=== PATIENT | male | born 1990 | race Asian ===

== ENCOUNTER 2017-12-31 21:39 | Emergency (ER) | payer BC, OTHER ==
[2017-12-31 21:53] VITALS: BP 120/71
--- NOTE | 2017-12-31 22:01 | UC ---
Lower Extremity/Ankle HPI - HPI Summary HPI Summary: This is frankie Martinez documenting for attending Johanna Arboleda M.D. Patient is a 27 y/o male who [place] [facility] [place]/o right ankle pain s/p fall [employer]. He states he fell down and slammed his right ankle while playing basketball. He has a prior fracture in that ankle 14 years ago, and has had multiple sprains since then. Patient states he cant put weight on the ankle, but he does have his full ROM. He reports the ankle feels swollen, and squishy in certain areas. Declines analgesics. Just wrote the bar exam, planning travel to [place] this . - History of Current Complaint Stated Complaint: ANKLE INJURY Hx Obtained From: Patient Onset/Duration: Sudden Onset, Lasting Hours - [employer], Still Present Severity Currently: Moderate Pain Intensity: 4 Pain Scale Used: 0-10 Numeric Aggravating Factor(s): Standing, Ambulation Alleviating Factor(s): Rest Able to Bear Weight: No Related History: Other - 14 years ago right ankle fracture - Allergies/Home Medications Allergies/Adverse Reactions: Allergies Allergy/AdvReac Type Severity Reaction Status Date / Time No Known Allergies Allergy Verified 12/31/17 21:53 Home Medications: Home Medications NK [No Home Medications Reported] 12/31/17 [History Confirmed 12/31/17] PMH/Surg Hx/FS Hx/Imm Hx Endocrine History: Other Other Endocrine History: NEGATIVE: diabetes Respiratory History: Other Other Respiratory History: NEGATIVE: asthma - Family History Known Family History: Positive: Diabetes - Social History Occupation: Student - just finished law school Alcohol Use: Occasionally Substance Use Type: None Smoking Status (MU): Never Smoked Tobacco Review of Systems Constitutional: Negative - Fever Skin: Negative Eyes: Negative ENT: Negative Respiratory: Negative Cardiovascular: Negative Gastrointestinal: Negative Genitourinary: Negative Motor: Negative Neurovascular: Negative Musculoskeletal: Arthralgia - Right ankle pain and swelling Neurological: Negative Psychological: Negative All Other Systems Reviewed And Are Negative: Yes Physical Exam Triage Information Reviewed: Yes Appearance: Well-Appearing, Pain Distress - mild Vital Signs: Initial Vital Signs Temp 98.4 F 12/31/17 21:49 Pulse 76 12/31/17 21:49 Resp 18 12/31/17 21:49 BP 120/71 12/31/17 21:49 Pulse Ox 99 07/26/18 21:49 Respiratory: Positive: Lungs clear, Normal breath sounds Cardiovascular: Positive: RRR, No Murmur Musculoskeletal Exam: Other - mild swelling lateral malleolus, with tenderness anteriorly. Mild to moderate swelling. Musculoskeletal: Positive: ROM Limited @ - right ankle with decreased flexion, extension Neurological: Positive: Alert, Muscle Tone Normal Psychological Exam: Normal Skin Exam: Normal Diagnostics - Laboratory Diagnostic Studies Completed/Ordered: right ankle --no fracture seen, mild soft tissue swelling. Lower Extremity Course/Dx - Course Course Of Treatment: Ice, elevation, compression, crutches. - Differential Dx/Diagnosis Differential Diagnosis/HQI/PQRI: Fracture (Closed), Sprain Provider Diagnoses: right ankle sprain Discharge - Sign-Out/Discharge Documenting (check all that apply): Patient Departure - Discharge Plan Condition: Stable Disposition: HOME Patient Education Materials: Ankle Sprain (ED) Referrals: No Primary Care Phys,NOPCP [Primary Care Provider] - Swapnil Bates [Medical Doctor] - Additional Instructions: Ice your ankle for 20 minutes on, 20 minutes off until bed. Keep your leg elevated, use ibuprofen as needed for pain (600mg three times daily with food). You have a referral to sports medicine clinic. In general, they will accomodate a visit quite quickly, particularly if you explain the upcoming travel. - Billing Disposition and Condition Condition: STABLE Disposition: Home
--- NOTE | 2018-01-01 07:40 | RAD ---
HISTORY: right ankle pain COMPARISONS: None VIEWS: 3, Frontal, lateral, and oblique views of the right ankle FINDINGS: BONE DENSITY: Normal. BONES: There is no displaced fracture. JOINTS: There is no arthropathy. There is a small joint effusion. ALIGNMENT: There is no dislocation. SOFT TISSUES: Unremarkable. OTHER FINDINGS: None. IMPRESSION: NO ACUTE OSSEOUS INJURY. SMALL JOINT EFFUSION. IF SYMPTOMS PERSIST, RECOMMEND REPEAT IMAGING. R2
== END 2017-12-31 22:25 | disposition home or self-care (01) ==
LOC: UCEAST 21:39
DX: S93.401A Sprain of unspecified ligament of right ankle, initial encounter (principal); W19.XXXA Unspecified fall, initial encounter; Y93.67 Activity, basketball; Y92.9 Unspecified place or not applicable; Z87.81 Personal history of (healed) traumatic fracture
CPT/HCPCS: 99203; G0463